=== PATIENT | male | born 1970 | race Two or more races ===

== ENCOUNTER 2017-12-11 17:58 | Inpatient (IN) | payer MEDICAID, OTHER ==
[~2017-12-11] VITALS: Ht 172.7 cm; Wt 79.0 kg
[2017-12-11] MEDS ORDERED: IV NS 0.9% 1,000 ML BAG IV ONE (19:00)
[2017-12-11] MEDS ORDERED: ACETAMINOPHEN 325 MG TABLET PO ONE (19:00)
[2017-12-11] MEDS ORDERED: ACETAMINOPHEN 325 MG TABLET ONE (19:14)
[2017-12-11 19:24] LABS: BASOPHILS % (AUTO) 0.5 % (0.0-2.0); EOSINOPHILS % (AUTO) 1.1 % (0.0-6.0); HEMATOCRIT 45 % (39-51); HEMOGLOBIN 14.9 g/dL (13.5-17.5); LYMPHOCYTES # (AUTO) 1.4 /CMM (0.8-4.8); LYMPHOCYTES % (AUTO) 18.3 % (20.0-44.0); MEAN CORPUSCULAR HEMOGLOBIN 31 PG (26.0-33.0); MEAN CORPUSCULAR HGB CONC 33 g/dl (31.0-36.0); MEAN CORPUSCULAR VOLUME 94 fL (80-96); MONOCYTES # (AUTO) 0.6 /CMM (0.1-1.30); MONOCYTES % (AUTO) 8.3 % (2.0-12.0); NEUTROPHILS # (AUTO) 5.6 /CMM (1.8-8.9); NEUTROPHILS % (AUTO) 71.8 % (43.0-81.0); PLATELET COUNT (AUTO) 91 /CMM (150-450); RDW COEFFICIENT OF VARIATION 13.8 (11.5-15.0); RED BLOOD CELL COUNT(AUTO) 4.76 MIL/uL (4.5-6.0); WHITE BLOOD COUNT (AUTO) 7.7 K/uL (4.3-11.0)
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
[2017-12-11 19:34] LABS: CALCIUM, SERUM 8.7 mg/dL (8.5-10.1); CREATININE 0.8 mg/dL (0.6-1.3)
[2017-12-11] MEDS ORDERED: IV NS 0.9% 250 ML IV ONE (19:56)
[2017-12-11] MEDS ORDERED: CT SWABBABLE VALVE TRANS SET 1 EA INFUS.SET MC ONE (19:56)
[2017-12-11] MEDS ORDERED: IOHEXOL-300 100 ML VIAL IV ONE (19:56)
--- NOTE | 2017-12-11 20:16 | NUR ---
APPLIED C COLLAR ON PT BY MYA TERRELL. PT TO CT VIA [facility]URKA.
[2017-12-11 20:40] LABS: BAND % (MANUAL) 2 % (0.0-5.0); EOSINOPHILS % (MANUAL) 1 % (0-4); LYMPHOCYTES % (MANUAL) 18 % (16-48); MONOCYTES % (MANUAL) 8 % (0-11.0); NEUTROPHILS % (MANUAL) 69 (42-76); REACTIVE LYMPHOCYTES 2 % (0-0)
--- NOTE | 2017-12-11 21:12 | NUR ---
ORTHO WAS PAGED
--- NOTE | 2017-12-11 21:12 | NUR ---
NURSING FAMILY SERVICES COORDINATOR WAS CALLED FOR MED SURG BED
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
--- NOTE | 2017-12-11 22:29 | NUR ---
REPORT GIVEN TO SERA. PT CHIVO NAD NOTED @ THIS TIME.
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
[2017-12-11] MEDS ORDERED: ACETAMINOPHEN 325 MG TABLET PO PRN (23:00)
[2017-12-11] MEDS ORDERED: HYDROCODONE/APAP 5/325MG 1 EACH TABLET PO PRN (23:00)
[2017-12-11] MEDS ORDERED: Z GUARD REMEDY 2 OZ OINT TP PRN (23:00)
[2017-12-11] MEDS ORDERED: MAG HYDROX/AL HYDROX/SIMETH 30 ML UDC PO PRN (23:00)
[2017-12-11] MEDS ORDERED: ONDANSETRON HCL/PF 4 MG/2 ML VIAL IVP PRN (23:00)
[2017-12-11] MEDS ORDERED: MAGNESIUM HYDROXIDE 30 ML UDC PO PRN (23:00)
[2017-12-11 23:19] LABS: ALBUMIN 3.9 g/dL (3.4-5.0); BILIRUBIN,DIRECT 0.2 mg/dL (0.0-0.2); BILIRUBIN,TOTAL 0.7 mg/dL (0.2-1.0); TOTAL PROTEIN, SERUM 7.5 g/dL (6.4-8.2)
[2017-12-11 23:22] LABS: INR 1.01 (0.87-1.13)
[2017-12-11 23:30] VITALS: BP 128/76
[2017-12-11] MEDS: IV NS 0.9% 1,000 ML IV PRN (23:38)
[2017-12-11] MEDS: HYDROCODONE/APAP 10/325MG 1 EA TABLET PO PRN (23:39)
[2017-12-12] MEDS ORDERED: LORAZEPAM 0.5 MG TABLET PO ONE (01:30)
--- NOTE | 2017-12-12 04:28 | NUR ---
I.V alarm keeps going off s/l to left ac while pt bends arm while sleeping. Started 22 ga to right hand grayson well. Iv N.S 0.9% infusing @ 75 cc hr without difficulty. siderails up Call light within reach.
--- NOTE | 2017-12-12 05:28 | NUR ---
Eyes closed resp even and unlab appears resting comfortably. IV N.S. infusing @ 75 cchr to right hand without difficulty. Siderails up Call light within reach.
[2017-12-12 07:05] LABS: BASOPHILS % (AUTO) 0.9 % (0.0-2.0); EOSINOPHILS % (AUTO) 1.9 % (0.0-6.0); HEMATOCRIT 37 % (39-51); HEMOGLOBIN 12.9 g/dL (13.5-17.5); LYMPHOCYTES # (AUTO) 1.1 /CMM (0.8-4.8); LYMPHOCYTES % (AUTO) 29.3 % (20.0-44.0); MEAN CORPUSCULAR HEMOGLOBIN 33 PG (26.0-33.0); MEAN CORPUSCULAR HGB CONC 35 g/dl (31.0-36.0); MEAN CORPUSCULAR VOLUME 96 fL (80-96); MONOCYTES # (AUTO) 0.5 /CMM (0.1-1.30); NEUTROPHILS # (AUTO) 2.2 /CMM (1.8-8.9); NEUTROPHILS % (AUTO) 55.9 % (43.0-81.0); PLATELET COUNT (AUTO) 56 /CMM (150-450); RDW COEFFICIENT OF VARIATION 14.4 (11.5-15.0); RED BLOOD CELL COUNT(AUTO) 3.88 MIL/uL (4.5-6.0); WHITE BLOOD COUNT (AUTO) 3.9 K/uL (4.3-11.0)
[2017-12-12 07:12] LABS: ALBUMIN 3.4 g/dL (3.4-5.0); BILIRUBIN,DIRECT 0.4 mg/dL (0.0-0.2); CALCIUM, SERUM 7.8 mg/dL (8.5-10.1); CREATININE 0.7 mg/dL (0.6-1.3); MAGNESIUM 1.4 mg/dL (1.8-2.4); PHOSPHORUS 3.5 mg/dL (2.5-4.9); POTASSIUM 3.7 mmol/L (3.5-5.1); TOTAL PROTEIN, SERUM 6.4 g/dL (6.4-8.2)
--- NOTE | 2017-12-12 07:30 | NUR ---
PT RECEIVED RESTING COMFORTABLY IN BED. NO S/S OR C/O PAIN OR DISTRESS NOTED. SIDE RAILS UP X2, CALL LIGHT LEFT WITHIN REACH. WILL CONTINUE PLAN OF CARE.
[2017-12-12 08:00] VITALS: BP 130/71
[2017-12-12] MEDS: HYDROCODONE/APAP 10/325MG 1 EA TABLET PO PRN (08:10)
[2017-12-12 09:02] LABS: LYMPHOCYTES % (MANUAL) 41 % (16-48); MONOCYTES % (MANUAL) 8 % (0-11.0); NEUTROPHILS % (MANUAL) 51 (42-76)
[2017-12-12] MEDS ORDERED: ALPRAZOLAM 0.25 MG TABLET PO PRN (10:30)
[2017-12-12] MEDS: Magnesium 1GM/D5W 100ML PREMIX 100 ML IV SCH ×3 (10:53→13:27)
[2017-12-12] MEDS: LORAZEPAM 1 MG TABLET PO PRN ×2 (11:17→19:40)
[2017-12-12] MEDS: SERTRALINE HCL 25 MG TABLET PO SCH (11:52)
[2017-12-12 16:00] VITALS: BP 140/76
[2017-12-12] MEDS: TRAMADOL HCL 50 MG TABLET PO PRN (18:08)
--- NOTE | 2017-12-12 18:31 | NUR ---
CHANGE OF SHIFT REPORT PT RESTING COMFORTABLY IN BED. NO S/S OR C/O PAIN OR DISTRESS NOTED. SIDE RAILS UP X2, CALL LIGHT LEFT WITHIN REACH. PT KEPT CLEAN, DRY, AND COMFORTABLE. NO SIGNIFICANT CHANGES SINCE PREVIOUS SHIFT. WILL GIVE REPORT TO LUKAS GRANADO.
[2017-12-12 20:00] VITALS: BP 118/86
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
--- NOTE | 2017-12-12 20:45 | NUR ---
RN NOTES NOTIFIED DEMO EVENT SPECIALIST CHAPIN, NO DISCHARGE ORDER, AND PER DR. CAROLINA'S NOTES, TO CONTINUE HOSPITALIZATION. COURY CALLED TO NOTIFY PATIENT ON NWB STATUS UNTIL CT RESULTS IS REVIEWED BY DR. FLEMING. NOTIFIED PATIENT AND SIGNIFICANT OTHER.
[2017-12-12 22:00] VITALS: BP 118/85
[2017-12-13] MEDS: IV NS 0.9% 1,000 ML IV PRN (05:34)
[2017-12-13] MEDS: TRAMADOL HCL 50 MG TABLET PO PRN ×3 (05:38→19:56)
[2017-12-13 06:25] LABS: BASOPHILS % (AUTO) 0.7 % (0.0-2.0); EOSINOPHILS % (AUTO) 3.1 % (0.0-6.0); HEMATOCRIT 39 % (39-51); HEMOGLOBIN 13.2 g/dL (13.5-17.5); LYMPHOCYTES # (AUTO) 1.2 /CMM (0.8-4.8); LYMPHOCYTES % (AUTO) 30.2 % (20.0-44.0); MEAN CORPUSCULAR HEMOGLOBIN 33 PG (26.0-33.0); MEAN CORPUSCULAR HGB CONC 34 g/dl (31.0-36.0); MEAN CORPUSCULAR VOLUME 97 fL (80-96); MONOCYTES # (AUTO) 0.4 /CMM (0.1-1.30); MONOCYTES % (AUTO) 8.9 % (2.0-12.0); NEUTROPHILS # (AUTO) 2.3 /CMM (1.8-8.9); NEUTROPHILS % (AUTO) 57.1 % (43.0-81.0); PLATELET COUNT (AUTO) 53 /CMM (150-450); RED BLOOD CELL COUNT(AUTO) 3.98 MIL/uL (4.5-6.0)
--- NOTE | 2017-12-13 06:30 | NUR ---
RN NOTES PATIENT IS ALERT AND AWAKE, NO RESPIRATORY DISTRESS, COMPLAINED OF PELVIC PAIN, GIVEN TRAMADOL, ANXIOUS, GIVEN LORAZEPAM X2, AWAITING DR. FLEMING FOR ORTHO CONSULT, NO ADVERSE CHANGE OF CONDITION DURING SHIFT, NEEDS ATTENDED, CALL LIGHT WITHIN REACH.
[2017-12-13 06:40] LABS: CALCIUM, SERUM 8.2 mg/dL (8.5-10.1); CREATININE 0.7 mg/dL (0.6-1.3); MAGNESIUM 1.8 mg/dL (1.8-2.4); PHOSPHORUS 3.6 mg/dL (2.5-4.9); POTASSIUM 4.2 mmol/L (3.5-5.1)
[2017-12-13] MEDS: LORAZEPAM 1 MG TABLET PO PRN ×2 (06:46→16:06)
--- NOTE | 2017-12-13 07:19 | NUR ---
MS RN OPENING NOTES RECEIVED PATIENT AWAKE IN BED IN NO ACUTE SIGNS OF DISTRESS. GIRLFRIEND AT BEDSIDE. ALERT AND ORIENTED X4. ABLE TO MAKE NEEDS KNOWN, NO C/O PAIN OR DISCOMFORTS VOICED AT THIS TIME. ON ROOM AIR, BREATHING EVEN AND UNLABORED. IV ACCESS ON RIGHT HAND INTACT AND PATENT, IVF OF NS @ 75ML/HR INFUSING, NO S/S OF INFILTRATION NOTED. SAFETY MEASURES IN PLACE. BED IN LOW/LOCKED POSITION WITH SIDE-RAILS UP X2. CALL LIGHT WITHIN REACH. WILL CONTINUE TO MONITOR PT ACCORDINGLY.
[2017-12-13 08:00] VITALS: BP 138/88
[2017-12-13 09:46] LABS: EOSINOPHILS % (MANUAL) 3 % (0-4); LYMPHOCYTES % (MANUAL) 15 % (16-48); MONOCYTES % (MANUAL) 3 % (0-11.0); NEUTROPHILS % (MANUAL) 79 (42-76)
[2017-12-13] MEDS: SERTRALINE HCL 25 MG TABLET PO SCH (09:57)
[2017-12-13 11:24] LABS: ALBUMIN 3.2 g/dL (3.4-5.0); BILIRUBIN,DIRECT 0.3 mg/dL (0.0-0.2); BILIRUBIN,TOTAL 1.9 mg/dL (0.2-1.0); TOTAL PROTEIN, SERUM 6.4 g/dL (6.4-8.2)
--- NOTE | 2017-12-13 12:20 | NUR ---
RN NOTES CALLED DR [facility], SPOKE TO PRINTED CIRCUIT BOARDS SOLDER LEVELER AND SAID THAT THEY WILL RELAY THE MESSAGE TO DR FLEMING AND THAT DR FLEMING WILL CALL BACK. WILL F/U.
[2017-12-13 16:00] VITALS: BP 121/83
--- NOTE | 2017-12-13 16:12 | NUR ---
RN NOTES CALL DR [facility] AGAIN BECAUSE DR FLEMING HAVEN'T RETURNED MY CALL YET EARLIER. SPOKE TO THERMOMETER TESTER AND SAID THAT SHE RELAYED THE MESSAGE TO DR JUDD. AWAITING FOR DR JUDD OR DR FLEMING TO CALL BACK. LEFT MESSAGE TO RUBY DEVELOPER CHAPIN THAT DR FLEMING DIDN'T COME YET TO SEE PT AND REQUESTED HIM IF HE CAN CALL DR FLEMING.
--- NOTE | 2017-12-13 16:18 | NUR ---
RN NOTES PATIENT VERY ANXIOUS, PRN ATIVAN 1MG TAB PO GIVEN. WILL CONTINUE TO MONITOR
--- NOTE | 2017-12-13 17:45 | NUR ---
RN NOTES DR FLEMING CAME TO UNIT AND ASSESSED PT. AGREED THAT X-RAY OF RIGHT KNEE TO BE DONE AND IF RESULTS IS NEGATIVE, THEN PT CAN BE DISCHARGED HOME TONIGHT, IF NOT THEN CONTACT AND INFORMED HIM. DR FLEMING ALSO SAID FOR PT TO F/U OR SEE HIM IN HIS CLINIC IN 10-14 DAYS POST DC. WILL ENDORSE TO REHABILITATION WORKER NURSE.
--- NOTE | 2017-12-13 19:22 | NUR ---
MS RN CLOSING NOTES PATIENT AWAKE IN BED WITH GIRLFRIEND AT BEDSIDE. ALERT AND ORIENTED X4. ABLE TO MAKE NEEDS KNOWN. ON ROOM AIR, BREATHING EVEN AND UNLABORED. IV ACCESS ON RIGHT HAND INTACT AND PATENT, IVF OF NS @ 75ML/HR INFUSING, NO S/S OF INFILTRATION NOTED. SAFETY MEASURES IN PLACE. BED IN LOW/LOCKED POSITION WITH SIDE-RAILS UP X2. CALL LIGHT WITHIN REACH. ALL NEEDS AND CARE ATTENDED WELL. ENDORSED TO FRUIT DISTRIBUTOR NURSE SEMAJ THAT PT WILL BE DISCHARGED HOME IF HIS X-RAY TO RIGHT KNEE IS NEGATIVE IF NOT THEN CONTACT AND INFORM RESULTS TO DR FLEMING. .
[2017-12-13] MEDS ORDERED: SERT25TA5 PO (19:27)
--- NOTE | 2017-12-13 19:30 | NUR ---
MS RN OPENING NOTE Patient was seen ambulating to the bathroom with steady gait, he is AAOx4, breathing on RA with no SOB, and no signs of acute distress. IV in right hand is intact and patent, and reconnected to NS at 75ml/hr. Patient's discharge is pending results of x-ray. Call [place] rio is within reach. Will continue to monitor.
[2017-12-13 20:00] VITALS: BP 130/79
--- NOTE | 2017-12-13 20:15 | NUR ---
MS STEEL POURER NOTE Patient's X-ray results of right knee came back negative; patient is okay for discharge. Discharge instructions were provided to patient, and patient signed discharge papers. Patient Belonging List was acknowledged and signed by patient; all belongings accounted for. All questions regarding discharge instructions and follow-up care were answered. IV in the right hand was removed. ID bracelets removed. Patient is leaving in stable condition; vital signs BP 130/79, HR 60 bpm, RR 20, Temp 99.5 F, O2 Sat 99% on RA. 50 mg of PO Tramadol was administered at 1956 for pain relief as ordered. Patient has significant other who is driving him home.
[2017-12-13 20:19] VITALS: BP 130/79
== END 2017-12-13 20:15 | disposition home or self-care (01) | DRG 341 ==
LOC: ER 18:00 → MED 22:22
PROVIDERS: ADMIT Nurse Practitioner Acute Care; ATTEND Nurse Practitioner Acute Care
DX: S32.401A Unspecified fracture of right acetabulum, initial encounter for closed fracture (principal); K76.6 Portal hypertension; D69.59 Other secondary thrombocytopenia; S32.591A Other specified fracture of right pubis, initial encounter for closed fracture; E83.42 Hypomagnesemia; R16.1 Splenomegaly, not elsewhere classified; F17.210 Nicotine dependence, cigarettes, uncomplicated; F32.9 Major depressive disorder, single episode, unspecified; S92.414A Nondisplaced fracture of proximal phalanx of right great toe, initial encounter for closed fracture; V29.9XXA Motorcycle rider (driver) (passenger) injured in unspecified traffic accident, initial encounter; Y93.9 Activity, unspecified; N43.3 Hydrocele, unspecified; I25.10 Atherosclerotic heart disease of native coronary artery without angina pectoris; F41.9 Anxiety disorder, unspecified; F10.20 Alcohol dependence, uncomplicated; Y92.410 Unspecified street and highway as the place of occurrence of the external cause; I86.8 Varicose veins of other specified sites; K70.30 Alcoholic cirrhosis of liver without ascites
CPT/HCPCS: 36415; 70450-TC; 71260-TC; 72125-TC; 73502; 73564-TC; 73660-TC; 76870-TC; 80048-TC; 80061-TC; 80076-TC; 83735-TC; 84100-TC; 85025-TC; 85610-TC; 86850-TC; 87081-TC; A4606; A6403; J2405; J3475; J7030; J7050; L0172; Q9967; Z7610